=== PATIENT | male | born 1965 | race Caucasian/White ===

== ENCOUNTER 2021-08-26 15:45 | Emergency (ER) | payer MEDICARE, MEDICAID, SELFPAY ==
[2021-08-26 16:23] VITALS: BP 155/91; PULSE 85; RESP 18; TEMP 36.5; O2SAT 99; BMI 24.4
--- NOTE | 2021-08-26 16:40 | XRR_ITS ---
PROCEDURE INFORMATION: Exam: XR Right Foot Exam date and time: 08/26/2021 4:40 PM Age: 56 years old Clinical indication: Pain; Foot; Right; Prior surgery; Additional info: Pain. Injury TECHNIQUE: Imaging protocol: XR Right foot. Views: 3 or more views. Total images: 3 COMPARISON: CR (LOW EXM, ) 08/26/2021 5:23 PM FINDINGS: Bones/joints: Recent nondisplaced transverse fracture mid shaft 5th metatarsal. Subacute fracture mid shaft 4th metatarsal with exuberant callus formation. Status post amputation 3rd digit and the head and neck of the 3rd metatarsal. Mild hallux valgus with bunion. Small heel spur. Mild hammertoe deformities. Soft tissues: Mild soft tissue swelling. No visible soft tissue emphysema or radiopaque foreign body. XR/XR foot RT min 3V* [id number] IMPRESSION: 1. Recent nondisplaced transverse fracture mid shaft 5th metatarsal. 2. Subacute fracture mid shaft 4th metatarsal with exuberant callus formation.
--- NOTE | 2021-08-26 16:41 | ED_ITS ---
Documented by User: SP Santiago 08/26/21 16:41 HPI - Extremity Problem General: Chief complaint: Extremity Problem,Nontraumatic Stated complaint: right foot pain Time Seen by Provider: 08/26/21 16:56 History of Present Illness: HPI Narrative: Patient states he felt a pop about 4 -5 days ago in his right foot and it hurts now to put weight on it. He says that it has been swollen and now that he has had more these new boots at work it is making it hurt worse. Denies any fever to his foot denies any history of gout. Patient says when he is not bearing weight does not hurt much. Course Vital Signs: Vital signs: Vital Signs Temperature 97.7 F 08/26/21 16:23 Pulse Rate 84 08/26/21 17:01 Respiratory Rate 16 08/26/21 17:01 Blood Pressure 116/69 08/26/21 17:01 Pulse Oximetry 100 08/26/21 17:01 Discharge Plan Discharge Patient Disposition: Home Condition: Stable Prescriptions: New hydrocodone-acetaminophen 5-325 mg tablet 1 tab PO Q8H PRN (Reason: pain (scale score 7-10)) Qty: 7 RF: 0 Discharge Orders: Discharge ED (Routine); Ordered 08/26/21 Ordered By: Jaden Rendon Referrals: Rosalva Funez MD [Family Provider] - Discharge Diet: Usual diet Discharge Activity: Increase activity as tolerated Patient Instructions: Foot Fracture in Adults (ED), Opioid Safety Activity Restrictions/Additional Instructions: Wear orthopedic boot for protection of fracture and support. Use acetaminophen as needed for pain. Follow-up with primary care for further instruction. Case management will contact you regarding follow-up appointment with podiatry/net application support specialist for further treatment and evaluation. Stand Alone Forms: Work/School Release Coding Level of Care Code ED Field Account Manager for Chg Fwd Exam Detailed Documented by User: SP Novoa 08/26/21 18:04 HPI - Extremity Problem General: Chief complaint: Extremity Problem,Nontraumatic Stated complaint: right foot pain Time Seen by Provider: 08/26/21 16:56 History of Present Illness: HPI Narrative: Patient comes in with complaints of lateral foot tenderness and swelling. Patient reports last week he was walking in the yard and he twisted his ankle since then he has had increased pain and discomfort to the lateral aspect of his foot and ankle. Patient has a history of diabetes. Patient has a history of amputation of the third digit of the toe due to an injury and infection. Patient denies any fever or chills. Patient did report a new job where he is standing a lot more and he believes that is increased to swelling. Patient is concerned for fracture. Review of Systems Musc: Reports: joint pain (Lateral right ankle) Physical Exam Const: COMMON NORMALS: no limitations and alert HENMT: COMMON NORMALS: atraumatic HEAD & SCALP: atraumatic Neck/C-Spine: COMMON NORMALS: full ROM Resp: COMMON NORMALS: normal respiratory effort Cardio: COMMON NORMALS: regular rate, regular rhythm and Peripheral pulses 2+ throughout RATE: regular rate RHYTHM: regular rhythm PERIPHERAL PULSES: Peripheral pulses 2+ throughout Extremity: RIGHT LOWER EXTREMITY: Yes foot & digits Right ankle: Yes inspection (swelling) and Yes palpation (lateral tenderness) and Yes foot & digits Right foot and digits: Yes inspection (swelling, absent 3rd digit) and Yes palpation (lateral tenderness) Neuro: SENSORIUM/ORIENTATION: Yes alert Course Vital Signs: Vital signs: Vital Signs Temperature 97.7 F 08/26/21 16:23 Pulse Rate 84 08/26/21 17:01 Respiratory Rate 16 08/26/21 17:01 Blood Pressure 116/69 08/26/21 17:01 Pulse Oximetry 100 08/26/21 17:01 MDM - Extremity (Nontraumatic) MDM Narrative: Medical decision making narrative: 56-year-old male patient comes in with injury to the right foot. Patient reports about 1 week ago he was walking across his yard and stepped in a hole causing his foot to turn and feeling a pop. Since then he has had pain with increased redness and swelling to the foot. Pulses are intact on examination. Sensation is normal. Differential diagnosis includes but not limited to sprain, contusion, fracture, cellulitis. Patient does have a history of an infection in that foot which she had to have amputation of the third digit. X-ray noted a subacute fracture to t he fourth metatarsal, and a transverse fracture to the fifth metatarsal shaft. No fracture was noted in the ankle. Patient did have some significant swelling. Patient was placed in a walking boot and recommended to follow-up with podiatry. Patient was given 7 tablets of hydrocodone for breakthrough pain. Encouraged use acetaminophen and ibuprofen for control of pain. Patient reports understanding agreed to plan. Discharge Plan Discharge Patient Disposition: Home Condition: Stable Prescriptions: New hydrocodone-acetaminophen 5-325 mg tablet 1 tab PO Q8H PRN (Reason: pain (scale score 7-10)) Qty: 7 RF: 0 Discharge Orders: Discharge ED (Routine); Ordered 08/26/21 Ordered By: Jaden Rendon Referrals: Rosalva Funez MD [Family Provider] - Discharge Diet: Usual diet Discharge Activity: Increase activity as tolerated Patient Instructions: Foot Fracture in Adults (ED), Opioid Safety Activity Restrictions/Additional Instructions: Wear orthopedic boot for protection of fracture and support. Use acetaminophen as needed for pain. Follow-up with primary care for further instruction. Case management will contact you regarding follow-up appointment with podiatry/net application support specialist for further treatment and evaluation. Stand Alone Forms: Work/School Release Coding Level of Care Code ED Field Account Manager for Pato Fwd Exam Detailed
[2021-08-26 17:01] VITALS: BP 116/69; PULSE 84; RESP 16; O2SAT 100
--- NOTE | 2021-08-26 17:02 | XRR_ITS ---
PROCEDURE INFORMATION: Exam: XR Right Ankle Exam date and time: 08/26/2021 5:02 PM Age: 56 years old Clinical indication: Pain; Ankle; Right; Additional info: Injury, swelling TECHNIQUE: Imaging protocol: XR Right ankle. Views: 3 or more views. Total images: 3 COMPARISON: No relevant prior studies available. FINDINGS: Bones/joints: No visible evidence of active or acute osseous pathology. Ankle mortise intact. Small heel spur. Soft tissues: Unremarkable. XR/XR ankle RT min 3V* [id number] IMPRESSION: Nonacute.
--- NOTE | 2021-08-27 11:06 | DCPLANNER ---
manager continuous improvement had message to schedule a follow up appointment for patient with ortho. manager continuous improvement called the ortho clinic, spoke with Fifi, gave clinic patients information. manager continuous improvement was told that patients information would be printed and reviewed. Clinic will call patient with appointment information.
--- NOTE | 2021-09-03 16:40 | DCPLANNER ---
Addendum entered by Cee Robertson 09/11/21 11:05: Patient had a follow up appointment scheduled for 09.04.[address] Lopez at ortho - patient did attend appointment. Original Note: Patient has a follow up appointment scheduled for Saturday, September 04, 2021 at 1:[address] Lopez at ortho. Clinic will call patient with appointment information.
== END 2021-08-26 18:38 | disposition home or self-care (01) ==
PROVIDERS: Emergency Provider Nurse Practitioner Family; Family Provider Family Medicine
DX: S92.354A Nondisplaced fracture of fifth metatarsal bone, right foot, initial encounter for closed fracture (principal); S92.344A Nondisplaced fracture of fourth metatarsal bone, right foot, initial encounter for closed fracture; X50.1XXA Overexertion from prolonged static or awkward postures, initial encounter; Y93.01 Activity, walking, marching and hiking; Y92.096 Garden or yard of other non-institutional residence as the place of occurrence of the external cause; E11.9 Type 2 diabetes mellitus without complications; Z89.421 Acquired absence of other right toe(s)
CPT/HCPCS: 73610; 73630; 99283

== ENCOUNTER → 2021-09-04 13:47 | Outpatient (BNVA) | payer MEDICARE, MEDICAID, SELFPAY | PROVIDERS: Family Provider Family Medicine; Visit Provider Podiatrist Foot & Ankle Surgery | DX: S92.901A Unspecified fracture of right foot, initial encounter for closed fracture (principal); X58.XXXA Exposure to other specified factors, initial encounter; Z46.89 Encounter for fitting and adjustment of other specified devices; S92.30 Fracture of unspecified metatarsal bone(s); X58.XXXS Exposure to other specified factors, sequela | CPT/HCPCS: 73630; 97760; L4361 ==

== ENCOUNTER 2021-09-04 15:05 | Outpatient (CLI) | payer MEDICARE, MEDICAID, SELFPAY | END 2021-09-04 15:06 | disposition home or self-care (01) | LOC: SPT 15:07 | PROVIDERS: Family Provider Family Medicine; Visit Provider Podiatrist Foot & Ankle Surgery | DX: Z46.89 Encounter for fitting and adjustment of other specified devices (principal); S92.30 Fracture of unspecified metatarsal bone(s); X58.XXXS Exposure to other specified factors, sequela | CPT/HCPCS: 97760; L4361 ==

== ENCOUNTER 2021-10-21 16:26 | Emergency (ER) | payer MEDICARE, MEDICAID, SELFPAY ==
[2021-10-21] VITALS (8 sets, daily range): BP systolic 113–144; BP diastolic 63–89; PULSE 96–119; RESP 14–20; TEMP 36.7–37.2; O2SAT 98–100; BMI 28.7
--- NOTE | 2021-10-21 17:03 | ED_ITS ---
HPI - GI Bleed General: Chief complaint: GI Bleed Stated complaint: N/V, pos GI bleed, HepC Time Seen by Provider: 10/21/21 17:03 History of Present Illness: Mr Marino is a 56-year-old gentleman with complex past medical history though reported improvement with weight loss and not curr ently on any medications who presents the emergency department due to concern over GI bleed. Apparently he is back to work and has been taking a number of [id number] pain medications likely mildly exceeding the daily recommended dosage. He took ibuprofen and on Tuesday subsequently developed hematemesis and dark tarry stools. The hematemesis is dark and mild like. He has had multiple episodes. He initially presented to the hospital and [facility] and was diagnosed with GI bleed. He reports being discharged with outpatient follow-up plan however is continued to have symptoms. He has generalized weakness and dyspnea on exertion. He reports lightheadedness and syncope as well as increased seizure frequency from baseline. Overall the course of symptoms has been worsening. Intensity is moderate to severe. He has associated generalized abdominal pain and cough as well. No other specific changes in health, exacerbating, or alleviating factors identified. Patient reports hemoglobin was around 9 when he presented to outside hospital. Onset (ago): day(s) Pain Consistency: constant Severity: moderate Relieving factors: none Review of Systems General: Reports: 10 or more systems reviewed and unremarkable except in HPI and below PFSH ED PFSH: Medical History (Updated 10/25/21 @ 14:21 by Tristen Anne MD) Diabetes Epilepsy Hepatitis C HLD (hyperlipidemia) HTN (hypertension) Surgical History History of cholecystectomy History of surgery of liver Social History Smoking and tobacco status: current every day smoker Physical Exam Const: COMMON NORMALS: alert GENERAL APPEARANCE: cooperative and ill appearing (Chronically) HENMT: COMMON NORMALS: normocephalic and atraumatic HEAD & SCALP: normocephalic and atraumatic THROAT: posterior oropharynx normal Eye: COMMON NORMALS: conjunctivae normal CONJUNCTIVA: Yes conjunctivae normal SCLERA: sclerae normal Neck/C-Spine: COMMON NORMALS: supple GENERAL: Yes trachea midline Resp: COMMON NORMALS: normal respiratory effort EFFORT & INSPECTION: Yes able to speak in complete sentences AUSCULTATION: diminished lung sounds Cardio: COMMON NORMALS: regular rhythm RATE: tachycardic RHYTHM: regular rhythm GI: COMMON NORMALS: Soft to palpation PALPATION: Yes Soft to palpation, Yes Tenderness to palpation present (GI), No Guarding due to palpation present (GI) and No Rigid due to palpation Extremity: GENERAL: Yes normal exam except as noted and No edema Neuro: COMMON NORMALS: moves all extremities SENSORIUM/ORIENTATION: Yes alert and No Orientation impaired Course ED course: - Patient was seen and evaluated by me at bedside - Patient placed on cardiac monitors, IV access obtained - Initial evaluation notable for somewhat ill appearance, no active vomiting. - Labs and xrays personally interpreted by me - Protonix ordered, analgesia, antiemetic ordered. - Labs notable for mild leukocytosis, significantly decreased hemoglobin of 5.7. Coags normal. No electrolyte derangement. - Patient consented for blood transfusion and transfusion was ordered. - Discussed case with Dr. Tapia (on-call GI) - Case discussed with hospital service pending CT imaging - Imaging notable for negative head CT for acute intracranial image or mass. Chest x-ray without lobar consolidation. CT abdomen pelvis notable for cirrhotic liver with small paraesophageal varices. - Upon serial reexamination after treatment the patient was mildly improved - Based on patient history, evaluation, and testing as interpreted the most likely cause of the patient's condition is GI bleed in the context of cirrhosis and varices. - Initially plan to admit at this facility however given presence of varices identified on CT scan the patient reports high risk level of care as we cannot intervene on varices with equipment that we have at our hospital. - Discussed case with Dr. [facility] in [place], patient accepted as ER to ER transfer for higher level care and definitive management by GI. After discussion octreotide ordered. Unfortunately patient is allergic to penicillin and does not have record of cephalosporin challenge, therefore will defer Rocephin at this time. - Patient agreeable to transfer and left by EMS in satisfactory condition Note: Click bubbles or prepopulated saldana in note writing are used for assistance with data collection and billing and are inherently more limited than narrative and other text portions of this note. Please use narrative for additional clinical history and defer to narrative/free test for any case of contradictory information. If information appears in only free text or click bubble it should be considered present or absent as reported. Please contact note mortgage underwriter for clarifications of clinical information or contradictory information. MDM is a brief summary, contradictory or erroneous seeming information should be clarified and full note should be reviewed. Vital Signs: Vital signs: Vital Signs Temperature 98.3 F 10/21/21 22:02 Pulse Rate 96 10/21/21 22:02 Respiratory Rate 18 10/21/21 22:02 Blood Pressure 144/88 10/21/21 22:02 Pulse Oximetry 98 10/21/21 22:02 MDM - GI Bleed Medical Decision Making 56-year-old gentleman with few day history of hematemesis of dark coffee-ground emesis and black stools presenting with worsening symptoms. Hemoglobin found to be 5.7. Initially plan to admit here for further management however CT imaging shows cirrhotic liver with esophageal varices. Patient transferred to [facility] in [place] for further care and definitive management. Medical Records I reviewed the patient's medical records. Lab Data I reviewed the patient's lab results. : 10/21/21 17:40 10/21/21 17:40 Radiology Impressions Chest X-Ray 10/21/21 17:04 IMPRESSION: No acute findings. Abdomen/Pelvis CT 10/21/21 18:36 IMPRESSION: 1. No acute findings. 2. Cirrhotic liver morphology with small paraesophageal varices. Head CT 10/21/21 18:36 IMPRESSION: 1. No acute intracranial abnormality. 2. Bilateral maxillary sinusitis. Laboratory Results WBC 11.3 10^3/uL (4.0-10.0) H 10/21/21 17:40 RBC 1.84 10^6/uL (4.1-5.3) L 10/21/21 17:40 Hgb 5.7 g/dL (11.7-16.6) L* 10/21/21 17:40 Hct 17.8 % (42.0-52.0) L* 10/21/21 17:40 MCV 96.7 fl (80-94) H 10/21/21 17:40 MCH 31.0 pg (28.0-34.0) 10/21/21 17:40 MCHC 32.0 g/dL (30.0-36.0) 10/21/21 17:40 RDW 15.0 % (12.1-15.1) 10/21/21 17:40 Plt Count 262 10^3/cmm (130-400) 10/21/21 17:40 MPV 10.0 fL (7.4-10.4) 10/21/21 17:40 Neut % (Auto) 59.7 % 10/21/21 17:40 Lymph % (Auto) 24.3 % 10/21/21 17:40 Meagher % (Auto) 11.5 % 10/21/21 17:40 Eos % (Auto) 2.7 % 10/21/21 17:40 Baso % (Auto) 0.5 % 10/21/21 17:40 Neut # (Auto) 6.73 10^3/uL (1.8-7.7) 10/21/21 17:40 Lymph # (Auto) 2.7 10^3/uL (0.8-4.8) 10/21/21 17:40 Meagher # (Auto) 1.3 10^3/uL (0.2-0.9) H 10/21/21 17:40 Eos # (Auto) 0.3 10^3/uL (0.0-0.8) 10/21/21 17:40 Baso # (Auto) 0.1 10^3/uL (0.0-0.1) 10/21/21 17:40 Nucleated RBC % (auto) 0 % 10/21/21 17:40 Nucleated RBCs # 0.0 /100WBC 10/21/21 17:40 PT 13.20 SECONDS (12.1-14.9) 10/21/21 17:40 INR 0.97 (0.8-1.2) 10/21/21 17:40 Sodium 138 mmol/L (136-145) 10/21/21 17:40 Potassium 4.0 mmol/L (3.5-5.1) 10/21/21 17:40 Chloride 106 mmol/L (98-107) 10/21/21 17:40 Carbon Dioxide 24 mmol/L (22-29) 10/21/21 17:40 Anion Gap 12.0 (5-19) 10/21/21 17:40 BUN 18 mg/dL (6-20) 10/21/21 17:40 Creatinine 0.6 mg/dL (0.7-1.2) L 10/21/21 17:40 GFR Calculation 138.4 mL/min (90-130) H 10/21/21 17:40 Glucose 135 mg/dL (65-115) H 10/21/21 17:40 Calculated Osmolality 290 mOsm/kg (285-295) 10/21/21 17:40 Calcium 8.5 mg/dL (8.5-10.5) 10/21/21 17:40 Total Bilirubin 0.2 mg/dL (0.15-1.2) 10/21/21 17:40 AST 10 U/L (0-40) 10/21/21 17:40 ALT 9 U/L (0-41) 10/21/21 17:40 Alkaline Phosphatase 100 IU/L (40-130) 10/21/21 17:40 Troponin T Baseline 9 ng/L (0-15) 10/21/21 17:40 Total Protein 5.9 g/dL (6.6-8.7) L 10/21/21 17:40 Albumin 3.5 g/dL (3.5-5.2) 10/21/21 17:40 Globulin 2.4 g/dL (1.3-4.6) 10/21/21 17:40 Lipase 42 U/L (13-60) 10/21/21 17:40 TSH 1.07 uIU/mL (0.27-4.20) 10/21/21 17:40 Urine Color Yellow (Yellow) 10/21/21 19:45 Urine Appearance Clear (CLEAR) 10/21/21 19:45 Urine pH 5 (5-7) 10/21/21 19:45 Ur Specific [place] 1.015 (1.005-1.030) 10/21/21 19:45 Urine Protein Neg (Negative) 10/21/21 19:45 Urine Glucose (UA) Norm (Normal) 10/21/21 19:45 Urine Ketones Negative (Negative) 10/21/21 19:45 Urine Blood Neg (Negative) 10/21/21 19:45 Urine Nitrate Negative (Negative) 10/21/21 19:45 Urine Bilirubin Neg (Negative) 10/21/21 19:45 Urine Urobilinogen Neg mg/dL (Negative) 10/21/21 19:45 Ur Leukocyte Esterase Negative (Negative) 10/21/21 19:45 Blood Type A Positive 10/21/21 18:15 Rho(D) Type Positive 10/21/21 18:15 Antibody Screen Negative 10/21/21 18:15 Crossmatch See Detail 10/21/21 18:15 EKG Data EKG 1: I personally reviewed and interpreted this EKG as follows: EKG interpretation date: 10/21/21 EKG interpretation time: 16:51 Interpretation: Twelve-lead EKG shows a regular rhythm at a rate of 111. KS interval 130, QRS duration 94, QTc 425. Normal axis. Interpretation: Sinus tachycardia. EKG 2: I personally reviewed and interpreted this EKG as follows: EKG interpretation date: 10/21/21 EKG interpretation time: 21:53 Interpretation: Twelve-lead EKG shows a regular rhythm at a rate of 1 1. KS interval 132, QRS duration 96, QTc 403. Normal axis. Interpretation: Sinus tachycardia. Critical Care Time Critical Care Time: Critical Care Time: Yes Total Critical Care Time: 35 Attestation: Due to a high probability of clinically significant, possibly life threatening deterioration, the patient required my highest level of attention and preparedness to intervene emergently and I personally spent this critical care t amy directly and personally managing the patient. This critical care time included obtaining a history; examining the patient; pulse oximetry; ordering and review of laboratory and imaging studies; arranging urgent treatment with development of a management plan; evaluation of patient's response to treatment; frequent reassessment; and, discussions with other providers as applicable. It was exclusive of separately billable procedures. Primary system involved is GI and cardiovascular Discharge Plan Discharge Patient Disposition: Transfer to ED Clinical Impression: Upper gastrointestinal hemorrhage, Esophageal varices, Tachycardia, Headache, Shortness of breath Condition: Stable Prescriptions: No Action (DME) Cam Boot to the right See Rx Instructions .Route .MEDSUPPLY Qty: 1 0RF Rx Instructions: As directed pantoprazole 40 mg tablet,delayed release (DR/EC) 40 mg PO DAILY 0RF Coding Level of Care Code ED Visual Lead for Chg Fwd Exam Comprehensive
--- NOTE | 2021-10-21 17:04 | XRR_ITS ---
PROCEDURE INFORMATION: Exam: XR Chest Exam date and time: 10/21/2021 5:04 PM Age: 56 years old Clinical indication: Right-sided; Patient HX: RT sided chest pain, no known injury TECHNIQUE: Imaging protocol: XR of the chest. Views: 1 view. COMPARISON: CR Chest 1 [place] [id number] 11/20/2018 3:22 PM FINDINGS: Lungs: Unremarkable. No consolidation. Pleural spaces: Unremarkable. No pleural effusion. No pneumothorax. Heart/Mediastinum: Unremarkable. No cardiomegaly. Bones/joints: Unremarkable. XR/XR chest 1V portable [id number] IMPRESSION: No acute findings.
--- NOTE | 2021-10-21 17:06 | ECG_ITS ---
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 Measurements Intervals [place] Rate: 111 P: 70 ME: 130 QRS: 65 QRSD: 94 T: 53 QT: 360 QTc: 489 Interpretive Statements SINUS TACHYCARDIA NONSPECIFIC T-WAVE ABNORMALITY Compared to ECG 11/20/2018 15:40:35 T-wave abnormality now present Sinus rhythm no longer present Electronically Signed On 10-21-2021 18:40:36 CDT by Patrick Henderson M.D. [id number]
[2021-10-21] MEDS: lactated ringers 1,000 ML 999 ML IV (17:46)
[2021-10-21] MEDS: pantoprazole 40 mg SDV 80 MG IVP (17:46)
[2021-10-21 17:53] LABS: Basophils # 0.1 10^3/uL (0.0-0.1); Basophils % 0.5 %; Eosinophils # 0.3 10^3/uL (0.0-0.8); Eosinophils % 2.7 %; Lymphocytes # 2.7 10^3/uL (0.8-4.8); Lymphocytes % 24.3 %; Mean Corpuscular Volume 96.7 fl (80-94); Monocytes # 1.3 10^3/uL (0.2-0.9); Monocytes % 11.5 %; Neutrophils # 6.73 10^3/uL (1.8-7.7); Neutrophils % 59.7 %; Nucleated Red Blood Cells % 0 %; Platelet Count 262 10^3/cmm (130-400); Red Blood Count 1.84 10^6/uL (4.1-5.3); White Blood Count 11.3 10^3/uL (4.0-10.0)
[2021-10-21 17:56] LABS: Hematocrit 17.8 % (42.0-52.0); Hemoglobin 5.7 g/dL (11.7-16.6)
[2021-10-21 18:21] LABS: INR 0.97 (0.8-1.2)
[2021-10-21 18:23] LABS: Troponin(5th) Baseline 9 ng/L (0-15)
[2021-10-21 18:33] LABS: Alanine Aminotransferase 9 U/L (0-41); Albumin Level 3.5 g/dL (3.5-5.2); Alkaline Phosphatase 100 IU/L (40-130); Aspartate Amino Transferase 10 U/L (0-40); Blood Urea Nitrogen 18 mg/dL (6-20); Calcium 8.5 mg/dL (8.5-10.5); Carbon Dioxide 24 mmol/L (22-29); Chloride 106 mmol/L (98-107); Globulin 2.4 g/dL (1.3-4.6); Glomerular Filtration Rate 138.4 mL/min (90-130); Glucose 135 mg/dL (65-115); Lipase 42 U/L (13-60); Osmolality Calculated 290 mOsm/kg (285-295); Sodium 138 mmol/L (136-145); Thyroid Stimulating Hormone 1.07 uIU/mL (0.27-4.20); Total Bilirubin 0.2 mg/dL (0.15-1.2); Total Protein 5.9 g/dL (6.6-8.7)
--- NOTE | 2021-10-21 18:36 | CTR_ITS ---
PROCEDURE INFORMATION: Exam: CT Head Without Contrast Exam date and time: 10/21/2021 6:36 PM Age: 56 years old Clinical indication: Patient HX: Syncope, per PT; Additional info: Headache, syncope TECHNIQUE: Imaging protocol: Computed tomography of the head without contrast. Radiation optimization: All CT scans at this facility use at least one of these dose optimization techniques: automated exposure control; mA and/or kV adjustment per patient size (includes targeted exams where dose is matched to clinical indication); or iterative reconstruction. COMPARISON: No relevant prior studies available. RADIATION DOSE METRICS: Total DLP (mGy-cm): 948.64 FINDINGS: Brain: Normal. No hemorrhage. Unremarkable white matter. No mass effect. Cerebral ventricles: No ventriculomegaly. Paranasal sinuses: Mucosal thickening and debris noted within both maxillary sinuses. The rest of the paranasal sinuses are well pneumatized. Mastoid air cells: Visualized mastoid air cells are well aerated. Bones/joints: Unremarkable. No acute fracture. Soft tissues: Unremarkable. CT/CT head wo con* [id number] IMPRESSION: 1. No acute intracranial abnormality. 2. Bilateral maxillary sinusitis.
--- NOTE | 2021-10-21 18:36 | CTR_ITS ---
PROCEDURE INFORMATION: Exam: CT Abdomen And Pelvis With Contrast Exam date and time: 10/21/2021 6:36 PM Age: 56 years old Clinical indication: Nausea and vomiting; Prior surgery; Surgery date: 6+ months; Surgery type: Gb; Additional info: Gi bleed TECHNIQUE: Imaging protocol: Computed tomography of the abdomen and pelvis with contrast. Radiation optimization: All CT scans at this facility use at least one of these dose optimization techniques: automated exposure control; mA and/or kV adjustment per patient size (includes targeted exams where dose is matched to clinical indication); or iterative reconstruction. Contrast material: OMNIPAQUE 300; Contrast volume: 95 ml; Contrast route: INTRAVENOUS (IV); COMPARISON: US gall bladder [id number] 10/13/2017 10:12 AM RADIATION DOSE METRICS: Total DLP (mGy-cm): 1967.16 FINDINGS: Liver: Nodular contour of the liver. No mass. Gallbladder and bile ducts: Cholecystectomy. No ductal dilation. Pancreas: Normal. No ductal dilation. Spleen: Normal. No splenomegaly. Adrenal glands: Normal. No mass. Kidneys and ureters: Normal. No hydronephrosis. Stomach and bowel: No obstruction. No mucosal thickening. Appendix: No evidence of appendicitis. Intraperitoneal space: No free air. No significant fluid collection. Vasculature: Small paraesophageal varices. No abdominal aortic aneurysm. Lymph nodes: Mildly prominent dulce hepatic and perigastric lymph nodes, likely reactive. Urinary bladder: Unremarkable as visualized. Reproductive: Unremarkable as visualized. Bones/joints: No acute fracture. Soft tissues: Unremarkable. CT/CT abdomen pelvis w con* [id number] IMPRESSION: 1. No acute findings. 2. Cirrhotic liver morphology with small paraesophageal varices.
--- NOTE | 2021-10-21 19:06 | ECG_ITS ---
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 Measurements Intervals [place] Rate: 101 P: 68 MN: 132 QRS: 67 QRSD: 96 T: 60 QT: 345 QTc: 448 Interpretive Statements SINUS TACHYCARDIA NONSPECIFIC T-WAVE ABNORMALITY Compared to ECG 10/21/2021 16:49:10 No significant changes Electronically Signed On 10-21-2021 23:05:18 CDT by Patrick Henderson M.D. [id number]
[2021-10-21] MEDS: iohexol 300 mg/mL 100 mL Btl IV (19:13)
[2021-10-21] MEDS: morphine 4 mg/mL SDV 1 mL IVP (19:30)
[2021-10-21] MEDS: sodium chloride 0.9% 100 mL Bag 50 ML IV (19:45)
[2021-10-21 20:07] LABS: Add Urine Microscopic? NO; Charge for UA Resulting for Rev
[2021-10-21 20:12] LABS: Bilirubin Urine Neg (Negative); Blood Urine Neg (Negative); Glucose Urine UA Norm (Normal); Ketones Urine Negative (Negative); Leukocyte Esterase Urine Negative (Negative); Nitrate Urine Negative (Negative); Protein Urine Neg (Negative); Specific Gravity, Urine 1.015 (1.005-1.030); Urine Appearance Clear (CLEAR); Urine Color Yellow (Yellow); Urobilinogen Urine Neg (Negative); pH Urine 5 (5-7)
[2021-10-21] MEDS: lidocaine 2% viscous 15 ML, aluminum-mag hydrox-simethicon 30 ML, sucralfate oral liq 1 GM PO (20:30)
[2021-10-21] MEDS: octreotide 500 MCG in sodium chloride 0.9% (100 ml) 100 ML 10.1 MCG IV (21:52)
[2021-10-21] MEDS: octreotide 100 mcg/mL SDV 50 MCG IVP (21:52)
== END 2021-10-21 23:12 ==
PROVIDERS: Emergency Provider Emergency Medicine
DX: K92.2 Gastrointestinal hemorrhage, unspecified (principal); I85.00 Esophageal varices without bleeding; R00.0 Tachycardia, unspecified; R51.9 Headache, unspecified; R06.02 Shortness of breath; E11.9 Type 2 diabetes mellitus without complications; Z86.19 Personal history of other infectious and parasitic diseases; E78.5 Hyperlipidemia, unspecified; I10 Essential (primary) hypertension; F17.210 Nicotine dependence, cigarettes, uncomplicated
CPT/HCPCS: 36415; 36430; 70450; 71045; 74177; 80053; 81003; 83690; 84443; 84484; 85025; 85610; 86850; 86900; 86920; 93005; 96365; 96374; 96375; 99285; C9113; J2270; J2354; P9040; Q9967